=== PATIENT | female | born 1955 | race Caucasian/White ===

== ENCOUNTER 2022-10-31 09:47 | Outpatient (REF) | payer BC, SELFPAY ==
--- NOTE | ~2022-10-31 | MM_ITS ---
EXAMINATION: MM SCREENING DIGITAL BREAST TOMOSYNTHESIS, BILATERAL CLINICAL INFORMATION: Screening. Asymptomatic. The lifetime risk of breast cancer based on the Tyrer-Cuzick Model is 6%. COMPARISON: Mammography: No prior mammograms are available. TECHNIQUE: Digital breast tomosynthesis is performed in both the craniocaudal and mediolateral oblique views along with computer-aided detection (CAD). Synthesized 2D images are generated from the tomosynthesis. FINDINGS: The breasts are heterogeneously dense, which may obscure small masses (ACR BI-RADS breast composition Category c). In the deep third of the lateral aspect of the right breast, near, grouped calcifications for which additional mammographic imaging with magnification is advised. There are no other significant findings in the remainder of the right breast. In the left breast, there are no significant masses, abnormal calcifications, or other abnormalities. MM/MM tomosynthesis screening BI IMPRESSION: Calcifications of the right breast warrant additional mammographic imaging magnification. No mammographic signs of malignancy left breast. ASSESSMENT: BI-RADS BI-RADS 0 - Incomplete: Needs additional Imaging. RECOMMENDATION: Additional views of the right breast Radiology department staff will contact the patient for additional imaging. Additional Imaging required This examination should not preclude the clinical evaluation of a suspicious palpable abnormality. This patient's information was entered into a reminder system with a target due date for their next mammogram.
== END 2022-10-31 09:48 | disposition home or self-care (01) ==
LOC: HO.MAMMO 09:47
PROVIDERS: PCP Internal Medicine; Visit Provider Internal Medicine
DX: Z12.31 Encounter for screening mammogram for malignant neoplasm of breast (principal)
CPT/HCPCS: 77063; 77067

== ENCOUNTER → 2022-10-31 10:00 | Outpatient (BNV) | payer BC, SELFPAY | PROVIDERS: PCP Internal Medicine; Visit Provider Radiology Diagnostic Radiology | DX: Z12.31 Encounter for screening mammogram for malignant neoplasm of breast (principal) | CPT/HCPCS: 77063; 77067 ==

== ENCOUNTER 2023-09-30 08:29 | Outpatient (AMB) | payer BC, SELFPAY ==
--- NOTE | 2023-09-30 08:45 | A.OFFPC_ITS ---
Vital Signs 09/30/23 08:47 Height 5 ft 1 in Weight 143 lb BMI 27.0 BP 128/70 Blood Pressure Location Lt brachial Position Sitting Pulse 78 Pulse Source Pulse Oximeter Pulse Oximetry (%) 97 Oxygen Delivery Method Room Air Intake Visit Reasons: Annual PE Intake Note: Pt is here today for PE. Pt had mammo in October of last year and she has appt in November. Pt has not had a pap in a long. Allergies No Known Allergies Allergy (Verified 09/30/23 08:48) Medication List - Last Reconciled 09/30/23 by Pia Hair MD clobetasol 0.05% 1 appl topical BEDTIME Tobacco use date assessed: 09/30/23 Fall risk assessment: No Falls in past year Last assessed Fall Risk: 09/30/23 Dental Screening Dental Screen Date: 09/30/23 Did you have a dental visit in the last 12 months?: Yes Did you have a dental problem in the last 6 months where you did not have access to dental care?: No Was dental information given to patient?: Patient has dentist HPI Annual PE HPI Details Pt presents for PE. Pt has been under lot of stress relating to her daughter and raising her grandchildren. She did not have lung cancer screening CT or Cologuard. [facility] Medical History (Updated 09/30/23 @ 09:25 by Pia Hair MD) Postmenopausal Nicotine dependence, cigarettes, uncomplicated Surgical History History of tonsillectomy History of loop electrical excision procedure (LEEP) History of endometrial ablation History of unilateral fallopian tube excision Family History Father CHF (congestive heart failure) Mother Hypertension Daughter Mental health disorder Substance use disorder Social History Housing: House Patient Tobacco Use Status: Current everyday Tobacco user Tobacco use type: Cigarette Cigarette Packs Per Day: 1 e-Cigarette/Vaping Use: Never Used service: No Current occupational status: employed Cognitive needs: No Hearing needs: No Vision needs: Yes Questionnaire PHQ-9 Over the last 2 weeks, how often have you been bothered by any of the following problems? 1. Little interest or pleasure in doing things: not at all 2. Feeling down, depressed, or hopeless: several days 3. Trouble falling or staying asleep, or sleeping too much: several days 4. Feeling tired or having little energy: not at all 5. Poor appetite or overeating: not at all 6. Feeling bad about yourself - or that you are a failure or have let yourself or your family down: not at all 7. Trouble concentrating on things, such as reading the newspaper or watching television: not at all 8. Moving or speaking so slowly that other people could have noticed. Or the opposite - being so fidgety or restless that you have been moving around a lot more than usual: not at all 9. Thoughts that you would be better off or of hurting yourself in some way: not at all Total score: 2 Depression Screening Interpretation: Negative Depression Screening Done: Yes Source: Developed by Drs. Arnold Tovar, Gretchen Morocho, Carlitos Zavaleta and colleagues, with an educational min from [employer]. Thrive Questionnaire Date Thrive assessed: 09/30/23 I am a: Patient What is your living situation today?: I have a steady place to live Within the past 12 months, did the food you bought not last and you didn't have the money to get more?: Never true Within the past 12 months, did you worry whether your food would run out before you got money to buy more?: Never true Do you have trouble paying for medicines?: No Do you have trouble getting transportation to medical appointments?: No Do you have trouble paying your heating and electricity bill?: No Do you have trouble taking care of your child, family member or friend?: No Do you have trouble with day-to-day activities such as bathing, preparing meals, shopping, managing finances, etc.?: No Are you currently unemployed and looking for a job?: No Are you interested in more education?: No Please select the resources that you would like help with: None THRIVE Score: 0 AUDIT C Alcohol Use Questionnaire (AUDIT-C) 1. How often do you have a drink containing alcohol?: Never 3. How often do you have six or more drinks on one occasion?: Never Total Score: 0 BAKARI-7 AMB Questionnaire BAKARI-7 Date BAKARI - 7 assessed: 09/30/23 Feeling nervous, anxious, or on edge: 1 = Several days Not being able to stop or control worryin = Several days Worrying too much about different things: 1 = Several days Trouble relaxin = Several days Being so restless that it is hard to sit still: 0 = Not at all Becoming easily annoyed or irritable: 1 = Several days Feeling afraid as if something awful might happen: 0 = Not at all Total BAKARI-7 score (0-4 normal; 5-9 mild; 10-14 moderate; 15-21 severe): 5 Source: Developed by Drs. Arnold Tovar, Gretchen Morocho, Carlitos Zavaleta and colleagues, with an educational min from [employer]. Review of Systems Const All systems reviewed & are unremarkable except as noted in HPI and below Eyes Reports no additional complaints ENT Reports no additional complaints Card Reports no additional complaints Resp Reports no additional complaints GI Reports no additional complaints Reports no additional complaints Physical exam (Primary Care) Vital Signs: Last Vital Signs Pulse 78 09/30/23 08:47 BP 128/70 09/30/23 08:47 Pulse Ox 97 09/30/23 08:47 Oxygen Delivery Method Room Air 09/30/23 08:47 BMI result Body Mass Index 27.0 Tobacco/Smoking Status: Tobacco use Status Tobacco use date assessed 09/30/23 09/30/23 08:50 Patient Tobacco Use Status Current everyday Tobacco 09/30/23 08:47 Tobacco use type Cigarette 09/30/23 08:47 e-Cigarette/Vaping Use Never Used 09/30/23 08:47 PHQ-9: PHQ-9 Score PHQ-9: Total score 2 09/30/23 08:54 Depression Screening Interpretation: Negative Thrive Assessment: Date of Thrive Assessment Date Thrive assessed 09/30/23 09/30/23 08:54 Const General: no acute distress HENMT Head: Yes normal to inspection Ears: hearing grossly normal bilaterally Mouth: Normal oral and palatal mucosa present Eyes General: appearance normal, both eyes and all related structures Neck Neck: Yes no lymphadenopathy and Yes supple Resp Effort & Inspection: normal respiratory effort Auscultation: clear to auscultation bilaterally Cardio Rhythm: regular rhythm Heart sounds: S1 normal heart sound present and S2 normal heart sound present GI Inspection: Yes normal to inspection Palpation (GI): Soft to palpation Percussion: Yes normal to percussion Auscultation: normal bowel sounds Assessment and Plan Assessment & Plan (1) Annual physical exam: Code(s): Z00.00 - Encounter for general adult medical examination without abnormal findings Plan: WELL-BALANCED DIET REGULAR PHYSICAL ACTIVITY DISCUSSED WITH THE PATIENT SHE WILL RETURN FOR FASTING BLOOD WORK. (2) Postmenopausal: Code(s): Z78.0 - Asymptomatic menopausal state Plan: Patient declined DEXA (3) Nicotine dependence, cigarettes, uncomplicated: Comment: Patient declined lung cancer screening CT 09/27 Code(s): F17.210 - Nicotine dependence, cigarettes, uncomplicated Plan: Tobacco quitting discussed with the patient. (4) Hx of screening mammography: Comment: 10/26 Code(s): Z92.89 - Personal history of other medical treatment (5) Colonoscopy refused: Comment: 09/27 Code(s): Z53.20 - Procedure and treatment not carried out because of patient's decision for unspecified reasons Plan: Cologuard is ordered Orders: Orders Vitamin D 25-OH Total Today Z00.00 - Encounter for general adult medical examination without abnormal findings, Z78.0 - Asymptomatic menopausal state Comprehensive [place]. Panel Fast Today Z00.00 - Encounter for general adult medical examination without abnormal findings, Z78.0 - Asymptomatic menopausal state Complete Blood Count Auto Diff Today Z00.00 - Encounter for general adult medical examination without abnormal findings, Z78.0 - Asymptomatic menopausal state Lipid Panel Today Z00.00 - Encounter for general adult medical examination without abnormal findings, Z78.0 - Asymptomatic menopausal state TSH reflex Free T4 Today Z00.00 - Encounter for general adult medical examination without abnormal findings, Z78.0 - Asymptomatic menopausal state Referrals Cologuard Test Z00.00 - Encounter for general adult medical examination without abnormal findings, Z12.11 - Encounter for screening for malignant neoplasm of colon, Z12.12 - Encounter for screening for malignant neoplasm of rectum, Z78.0 - Asymptomatic menopausal state Coding Level of Care Code Est Pt Prev Care >65y(88120) Diagnoses Annual physical exam Z00.00 Postmenopausal Z78.0 Nicotine dependence, cigarettes, uncomplicated F17.210 Hx of screening mammography Z92.89 Colonoscopy refused Z53.20
[2023-09-30 08:47] VITALS: BP 128/70; PULSE 78; O2SAT 97; BMI 27.0
== END 2023-09-30 09:22 | disposition home or self-care (01) ==
PROVIDERS: PCP Internal Medicine; Visit Provider Internal Medicine
DX: Z00.00 Encounter for general adult medical examination without abnormal findings (principal); Z78.0 Asymptomatic menopausal state; F17.210 Nicotine dependence, cigarettes, uncomplicated; Z92.89 Personal history of other medical treatment; Z53.20 Procedure and treatment not carried out because of patient's decision for unspecified reasons
CPT/HCPCS: 99397

== ENCOUNTER 2023-11-10 09:53 | Outpatient (REF) | payer BC, SELFPAY ==
--- NOTE | ~2023-11-10 | MM_ITS ---
EXAMINATION: MM DIAGNOSTIC DIGITAL BREAST TOMOSYNTHESIS, BILATERAL CLINICAL INFORMATION: 1 year follow-up for calcifications right breast, lower outer quadrant posterior one third. Due to a coding error which is consistently present within the dictation system (systems issue), the patient never received notification for extra views. Patient presents for extra views today, and Patient due for bilateral screening. COMPARISON: Mammography: 10/31/2022 Baseline exam. TECHNIQUE: Digital breast tomosynthesis is performed in both the craniocaudal and mediolateral oblique views along with computer-aided detection (CAD). Synthesized 2D images are generated from the tomosynthesis. In addition, 2-D spot magnification right CC and right ML views x2 were also obtained. FINDINGS: The breasts are heterogeneously dense, which may obscure small masses (ACR BI-RADS breast composition Category c). Spot magnification views of the calcifications in the posterior lower outer right breast demonstrate the majority appear to layer and teacup on the ML projections, suggesting these are milk of calcium. They largely appear unchanged when compared with 10/31/2022. These are probably benign Otherwise, there are no suspicious masses, no additional suspicious grouped calcifications, or areas of architectural distortion in either breast. The parenchymal pattern is stable from the prior exam. There is no skin or axillary abnormality. MM/MM tomosynthesis diagnostic BI IMPRESSION: There are no findings in either breast suspicious for malignancy. Calcifications in the posterior lower outer right breast appear to layer on the ML view and are consistent with milk of calcium. These calcifications are probably benign, one year follow-up diagnostic right mammogram (standard magnification views) recommended when the patient returns for annual screening. ASSESSMENT: BI-RADS BI-RADS 3 - Probably benign finding(s) - 12 month follow-up suggested RECOMMENDATION: 12 month diagnostic follow up Results were provided to the patient at time of visit by the technologist. This patient's information was entered into a reminder system with a target due date for their next mammogram.
== END 2023-11-10 09:54 | disposition home or self-care (01) ==
LOC: HO.MAMMO 09:53
PROVIDERS: PCP Internal Medicine; Visit Provider Internal Medicine
DX: R92.1 Mammographic calcification found on diagnostic imaging of breast (principal)
CPT/HCPCS: 77062; 77066

== ENCOUNTER → 2023-11-10 10:00 | Outpatient (BNV) | payer BC, SELFPAY | PROVIDERS: PCP Internal Medicine; Visit Provider Radiology Diagnostic Radiology | DX: R92.1 Mammographic calcification found on diagnostic imaging of breast (principal) | CPT/HCPCS: 77062; 77066 ==

== ENCOUNTER 2024-11-14 10:41 | Outpatient (REF) | payer BC, SELFPAY ==
--- NOTE | ~2024-11-14 | MM_ITS ---
EXAMINATION: MM DIAGNOSTIC DIGITAL BREAST TOMOSYNTHESIS, BILATERAL CLINICAL INFORMATION: 1 year follow-up for grouped right breast calcifications lower outer breast. COMPARISON: Mammography: Comparison is made with relevant prior exams. TECHNIQUE: Digital breast mammography with tomosynthesis is performed in both the craniocaudal and mediolateral oblique views along with computer-aided detection (CAD). FINDINGS: The breasts are heterogeneously dense, which may obscure small masses (ACR BI-RADS breast composition Category c). Left: There are no significant masses, abnormal calcifications, or other abnormalities. Right: Grouped punctate calcifications in the lower outer right breast middle to posterior depth are not significant changed on magnification views for one year. No suspicious masses or other abnormal findings. Results are provided to the patient at time of visit by the technologist. MM/MM tomosynthesis diagnostic BI IMPRESSION: Left: Negative. Right: Grouped punctate calcifications in the lower outer right breast middle and posterior depth are not significant changed on magnification views dating back for one year. Recommend one-year follow-up to demonstrate 2 years of stability when the patient will be due for bilateral mammography. ASSESSMENT: BI-RADS BI-RADS 3 - Probably benign finding(s) - 12 month follow-up suggested RECOMMENDATION: 12 month diagnostic follow up This patient's information was entered into a reminder system with a target due date for their next mammogram. Electronically signed by: Denita Wynn DO 11/14/2024 11:47 AM EDT
--- OUTSIDE RECORDS SUMMARY | 2024-11-14 11:25 | XMS_ITS | Clinical Summary ---
Author Organization [facility] ity Address [address] [place] [address] Care Team Providers Care Insulation Engineman Name Role Phone Unavailable Primary Care Provider Unavailabl e Social History Tobacco Use Types Packs/Day Years Used Date Smoking Tobacco: Never Assessed Comments Unknown Sex and Gender Information Value Date Recorded Sex Assigned at Not on file Legal Sex Female 11:50 PM EST Gender Identity Not on file Sexual Orientation Not on file Plan of Treatment Health Maintenance Due Date Last Done Comments Breast Cancer Screening 1955 DTaP,Tdap,and Td Vaccines (1 - Tdap) 1976 Pneumococcal Vaccine: 50+ Ye ars (1 of 1 - PCV) 2007 Zoster Vaccines (1 of 2) 2007 COVID-19 Vaccine (1 - 2023-2 5 season) 2023 Depression Screening 04/06/2024 Influenza Vaccine (#1) 2024 RSV Immunization Adult Patie nts (1 - 1-dose 75+ series) 2032 HIB Vaccines Aged Out No longer eligi ble based on patient's age to complete this topic HPV Vaccines Aged Out No longer eligi ble based on patient's age to complete this topic Hepatitis A Vaccines Aged Out No long er eligible based on patient's age to complete this topic Hepatitis B Vaccines Aged Out No long er eligible based on patient's age to complete this topic IPV Vaccines Aged Out No longer eligi ble based on patient's age to complete this topic MMR Vaccines Aged Out No longer eligi ble based on patient's age to complete this topic Meningococcal ACWY Vaccine Aged Out N o longer eligible based on patient's age to complete this topic Meningococcal B Vaccine Aged Out No l onger eligible based on patient's age to complete this topic RSV Immunization Patients Un sachin 20 months Aged Out No longer eligible b ased on patient's age to complete this topic Varicella Vaccines Aged Out No longer eligible based on patient's age to complete this topic
== END 2024-11-14 10:42 | disposition home or self-care (01) ==
LOC: HO.MAMMO 10:41
PROVIDERS: PCP Internal Medicine; Visit Provider Internal Medicine
DX: R92.1 Mammographic calcification found on diagnostic imaging of breast (principal)
CPT/HCPCS: 77062; 77066

== ENCOUNTER → 2024-11-14 11:00 | Outpatient (BNV) | payer BC, SELFPAY | PROVIDERS: PCP Internal Medicine; Visit Provider Internal Medicine | DX: R92.1 Mammographic calcification found on diagnostic imaging of breast (principal) | CPT/HCPCS: 77062; 77066 ==

== ENCOUNTER 2025-03-14 07:56 | Outpatient (AMB) | payer BC, SELFPAY ==
--- NOTE | 2025-03-14 07:59 | A.OFFPC_ITS ---
Vital Signs 03/14/25 08:00 Height 5 ft 1 in Weight 147 lb BMI 27.8 BP 128/74 Blood Pressure Location Lt brachial Position Sitting Respiration 17 Pulse 76 Pulse Source Pulse Oximeter Temp 97.8 F Temp Source Oral Pulse Oximetry (%) 96 Oxygen Delivery Method Room Air Intake Visit Reasons: Annual PE Intake Note: Pt is here today for PE. Allergies No Known Allergies Allergy (Verified 03/14/25 08:02) Medication List - Last Reconciled 03/14/25 by Pia Hair MD clobetasol 0.05% 1 appl topical BEDTIME Tobacco use date assessed: 03/14/25 Fall risk assessment: No Falls in past year Last assessed Fall Risk: 03/14/25 Dental Screening Dental Screen Date: 03/14/25 Did you have a dental visit in the last 12 months?: No Did you have a dental problem in the last 6 months where you did not have access to dental care?: No Was dental information given to patient?: Patient declined HPI Annual PE HPI Details Patient presents for physical. She complains of being under lot of stress related to her full-time job and helping to raise her grandchildren 8 and 4-year-old. Patient denies depression suicide ideation change in appetite but reports occasionally insomnia. Patient is not interested in psychotherapy or medications [facility] Medical History (Updated 03/14/25 @ 08:32 by Pia Hair MD) Hx of screening mammography Annual physical exam Postmenopausal Nicotine dependence, cigarettes, uncomplicated Surgical History History of tonsillectomy History of loop electrical excision procedure (LEEP) History of endometrial ablation History of unilateral fallopian tube excision Family History Father CHF (congestive heart failure) Mother Hypertension Daughter Mental health disorder Substance use disorder Social History Housing: House Patient Tobacco Use Status: Current everyday Tobacco user Tobacco use type: Cigarette Cigarette Packs Per Day: 1 e-Cigarette/Vaping Use: Never Used service: No Current occupational status: employed Cognitive needs: No Hearing needs: No Vision needs: Yes Questionnaire PHQ-9 Over the last 2 weeks, how often have you been bothered by any of the following problems? 1. Little interest or pleasure in doing things: not at all 2. Feeling down, depressed, or hopeless: several days 3. Trouble falling or staying asleep, or sleeping too much: several days 4. Feeling tired or having little energy: not at all 5. Poor appetite or overeating: not at all 6. Feeling bad about yourself - or that you are a failure or have let yourself or your family down: not at all 7. Trouble concentrating on things, such as reading the newspaper or watching television: not at all 8. Moving or speaking so slowly that other people could have noticed. Or the opposite - being so fidgety or restless that you have been moving around a lot more than usual: not at all 9. Thoughts that you would be better off or of hurting yourself in some way: not at all Total score: 2 Depression Screening Interpretation: Negative Depression Screening Done: Yes 40331 - PHQ-9 Billing: Yes Source: Developed by Drs. Arnold Tovar, Gretchen Morocho, Carlitos Zavaleta and colleagues, with an educational min from [employer]. Thrive Questionnaire Date Thrive assessed: 03/14/25 I am a: Patient What is your living situation today?: I have a steady place to live Within the past 12 months, did the food you bought not last and you didn't have the money to get more?: Never true Within the past 12 months, did you worry whether your food would run out before you got money to buy more?: Never true Do you have trouble paying for medicines?: No Do you have trouble getting transportation to medical appointments?: No Do you have trouble paying your heating and electricity bill?: No Do you have trouble taking care of your child, family member or friend?: No Do you have trouble with day-to-day activities such as bathing, preparing meals, shopping, managing finances, etc.?: No Are you currently unemployed and looking for a job?: No Are you interested in more education?: No Please select the resources that you would like help with: None Currently or been in a relationship where the following occur: No concerns reported THRIVE Score: 0 AUDIT C Alcohol Use Questionnaire (AUDIT-C) 1. How often do you have a drink containing alcohol?: Never 3. How often do you have six or more drinks on one occasion?: Never Total Score: 0 BAKARI-7 AMB Questionnaire BAKARI-7 Date BAKARI - 7 assessed: 03/14/25 Feeling nervous, anxious, or on edge: 1 = Several days Not being able to stop or control worryin = Several days Worrying too much about different things: 1 = Several days Trouble relaxin = Several days Becoming easily annoyed or irritable: 1 = Several days Feeling afraid as if something awful might happen: 1 = Several days Source: Developed by Drs. Arnold Tovar, Gretchen Morocho, Carlitos Zavaleta and colleagues, with an educational min from [employer]. BAKARI-7 Assessment Billing BAKARI-7 Assessment Tool: BAKARI-7 Assessment 78108 Review of Systems Const All systems reviewed & are unremarkable except as noted in HPI and below Eyes Reports no additional complaints ENT Reports no additional complaints Card Reports no additional complaints Resp Reports no additional complaints GI Reports no additional complaints Reports no additional complaints Physical exam (Primary Care) Vital Signs: Last Vital Signs Temp 97.8 F 03/14/25 08:00 Pulse 76 03/14/25 08:00 Resp 17 03/14/25 08:00 BP 128/74 03/14/25 08:00 Pulse Ox 96 03/14/25 08:00 Oxygen Delivery Method Room Air 03/14/25 08:00 BMI result Body Mass Index 27.8 Tobacco/Smoking Status: Tobacco use Status Tobacco use date assessed 03/14/25 03/14/25 08:06 Patient Tobacco Use Status Current everyday Tobacco 03/14/25 08:06 Tobacco use type Cigarette 03/14/25 08:06 e-Cigarette/Vaping Use Never Used 03/14/25 08:06 PHQ-9: PHQ-9 Score PHQ-9: Total score 2 03/14/25 08:06 Depression Screening Interpretation: Negative Thrive Assessment: Date of Thrive Assessment Date Thrive assessed 03/14/25 03/14/25 08:06 Currently or been in a relationship where the following occur: No concerns reported Const General: no acute distress HENMT Head: Yes normal to inspection Ears: TM's normal bilaterally Face and sinus: Yes normal facial exam Throat: Yes posterior oropharynx normal Eyes General: appearance normal, both eyes and all related structures Neck Neck: Yes no lymphadenopathy and Yes supple Resp Effort & Inspection: normal respiratory effort Auscultation: clear to auscultation bilaterally Cardio Rhythm: regular rhythm Heart sounds: S1 normal heart sound present and S2 normal heart sound present GI Inspection: Yes normal to inspection Palpation (GI): Soft to palpation Percussion: Yes normal to percussion Auscultation: normal bowel sounds Coding Level of Care Code Est Pt Prev Care >65y(99616) Diagnoses Annual physical exam Z00.00 Additional Codes BAKARI-7 Assessment Billing - BAKARI-7 Assessment Tool: BAKARI-7 Assessment 63664 ([id number]) PHQ-9 - 82835 - PHQ-9 Billing: Yes ([id number]) Assessment & Plan Assessment & Plan (1) Annual physical exam: Code(s): Z00.00 - Encounter for general adult medical examination without abnormal findings Category: Medical Plan: Well-balanced diet regular physical activity discussed with the patient. Tobacco quitting was recommended. Patient is up-to-date with the mammogram. she declined colonoscopy but agreed to Cologuard. Lung cancer screening program was recommended but patient declined. She will have a fasting blood work today. Orders: Orders Comprehensive [address]. Panel Fast Today E53.8 - Deficiency of other specified B group vitamins, Z00.00 - Encounter for general adult medical examination without abnormal findings Lipid Panel Today E53.8 - Deficiency of other specified B group vitamins, Z00.00 - Encounter for general adult medical examination without abnormal findings Vitamin D 25-OH Total Today E53.8 - Deficiency of other specified B group vitamins, Z00.00 - Encounter for general adult medical examination without abnormal findings Complete Blood Count Auto Diff Today E53.8 - Deficiency of other specified B group vitamins, Z00.00 - Encounter for general adult medical examination without abnormal findings TSH reflex Free T4 Today E53.8 - Deficiency of other specified B group vitamins, Z00.00 - Encounter for general adult medical examination without abnormal findings Vitamin B12 and Folate Today E53.8 - Deficiency of other specified B group vitamins, Z00.00 - Encounter for general adult medical examination without abnormal findings UA w Microscopic Today E53.8 - Deficiency of other specified B group vitamins, Z00.00 - Encounter for general adult medical examination without abnormal findings Referrals Cologuard Test Z12.11 - Encounter for screening for malignant neoplasm of colon, Z12.12 - Encounter for screening for malignant neoplasm of rectum
[2025-03-14 08:00] VITALS: BP 128/74; PULSE 76; RESP 17; TEMP 36.6; O2SAT 96; BMI 27.8
--- OUTSIDE RECORDS SUMMARY | 2025-03-14 08:24 | XMS_ITS | Clinical Summary ---
Author Organization [facility] ity Address [address] [place] [address] Care Team Providers Care Tractor Technician Name Role Phone Unavailable Primary Care Provider [...] 2007 Zoster Vaccines (1 of 2) 2007 Depression Screening 04/06/2024 COVID-19 Vaccine (1 - 2024-2 6 season) 2024 Influenza Vaccine (#1) 2024 RSV Immunization Adult [...]
== END 2025-03-14 09:25 | disposition home or self-care (01) ==
LOC: HO.HMCC 07:57
PROVIDERS: PCP Internal Medicine; Visit Provider Internal Medicine
DX: Z00.00 Encounter for general adult medical examination without abnormal findings (principal)

== ENCOUNTER → 2025-03-14 07:56 | Outpatient (BNVA) | payer BC, SELFPAY | PROVIDERS: PCP Internal Medicine; Visit Provider Internal Medicine | DX: Z00.00 Encounter for general adult medical examination without abnormal findings (principal) | CPT/HCPCS: 96127 ==